=== PATIENT | female | born 1930 | race Caucasian/White ===

== ENCOUNTER 2022-06-03 02:28 | Emergency (ER) | payer MEDICARE ==
--- NOTE | 2022-06-03 02:48 | ED Physician Documentation ---
PD HPI Fall - Stated complaint Stated Complaint: Fall - Chief complaint Chief Complaint: Trauma Ch/Bk - History obtained from History obtained from: Patient, Family - History of Present Illness Mechanism of injury: Lost balance Fall distance: Standing position Where injury occurred: Home Timing - onset: Enter time (01:30) Injury(ies) location: Chest Pain level now: 5 Quality of pain: Pain Associated symptoms: No: LOC, AMS, Amnesia, Neck pain, Weakness, Paresthesias, Dyspnea, Nausea / vomiting, Hematemesis, Abdominal distension Symptoms improve with: Rest Worsens with: Movement Contributing factors: Anticoagulated. No: Intoxicated Similar symptoms before: Has not had sx before Recently seen: Not recently seen - Additional information Additional information: Patient was about to use the bathroom at approximately 1:30 this morning when she turned and lost her balance, causing her to fall to the ground. She denies head injury, denies ESCALANTE, denies neck pain. Her chief complaint is left low posterolateral chest pain that is distinctly worse with palpation and, to a lesser degree, with movement. Her medications include warfarin for atrial fibrillation Review of Systems Constitutional: reports: Reviewed and negative Eyes: reports: Reviewed and negative Ears: reports: Reviewed and negative Nose: reports: Reviewed and negative Throat: reports: Reviewed and negative Cardiac: reports: Chest pain / pressure (left low chest wall pain). denies: Palpitations, Pedal edema Respiratory: reports: Reviewed and negative GI: reports: Reviewed and negative : reports: Reviewed and negative Skin: reports: Reviewed and negative Musculoskeletal: reports: Reviewed and negative Neurologic: reports: Reviewed and negative PD PAST MEDICAL HISTORY - Past Medical History Past Medical History: Yes Cardiovascular: High cholesterol, Atrial fibrillation Endocrine/Autoimmune: HyPOthyroidism - Present Medications Home Medications: Ambulatory Orders Medication Instructions Recorded Confirmed Levothyroxine Sodium [Synthroid] 100 mcg PO DAILY 06/03/22 06/03/22 Simvastatin [Zocor] 20 mg PO DAILY 06/03/22 06/03/22 - Allergies Allergies/Adverse Reactions: Allergies Allergy/AdvReac Type Severity Reaction Status Date / Time No Known Drug Allergies Allergy Verified 06/03/22 03:14 - Living Situation Living Situation: reports: With family Living Arrangement: reports: At home PD ED PE NORMAL - Vitals Vital signs reviewed: Yes - General General: Alert and oriented X 3, Other (thin female in NAD when lying still but appears to have mild painful discomfort with movement such as sitting up for pulmonary auscultation or with deep inspiration) - HEENT HEENT: Atraumatic, PERRL, EOMI - Neck Neck: No bony TTP - Respiratory Respiratory: No respiratory distress, Clear bilaterally - Abdomen Abdomen: Soft, Non distended, Other (LUQ TTP without rebound or guarding) - Back Back: No spinal TTP - Derm Derm: Normal color, Warm and dry - Extremities Extremities: No deformity, No tenderness to palpate, Normal ROM s pain - Neuro Neuro: Alert and oriented X 3, 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, Normal speech Eye Opening: Spontaneous Motor: Obeys Commands Verbal: Oriented GCS Score: 15 PD ED PE EXPANDED - Cardiac Cardiac: Regular Rate, Irregularly irregular, Chest wall TTP (left posterolateral chest wall tenderness without crepitus; no echymosis) Results - Vitals Vitals: Vital Signs - 24 hr 06/03/22 06/03/22 06/03/22 02:35 04:40 06:00 Temperature 36.1 C L 36.3 C L Heart Rate 68 70 90 Respiratory 18 17 18 Rate Blood Pressure 147/84 H 136/76 H 140/82 H O2 Saturation 100 99 98 06/03/22 06/03/22 06/03/22 06:35 06:54 08:00 Temperature Heart Rate 74 103 H 107 H Respiratory 16 23 Rate Blood Pressure 122/73 142/87 H O2 Saturation 100 99 Oxygen O2 Source Room air - Labs Labs: Laboratory Tests 06/03/22 06/03/22 06/03/22 03:12 03:12 03:35 WBC 6.3 RBC 4.01 L Hgb 12.1 Hct 36.8 L MCV 91.8 MCH 30.2 MCHC 32.9 RDW 13.5 Plt Count 136 MPV 10.9 H Neut # (Auto) 4.1 Lymph # (Auto) 1.3 L Lewis # (Auto) 0.7 Eos # (Auto) 0.1 Baso # (Auto) 0.1 Absolute Nucleated RBC 0.00 Nucleated RBC % 0.0 PT 32.7 H INR 3.2 H Sodium 135 Potassium 4.5 Chloride 100 L Carbon Dioxide 27 Anion Gap 8.0 BUN 34 H Creatinine 1.0 Estimated GFR (MDRD) 52 L Glucose 119 H Calcium 9.3 Nasal Adenovirus (PCR) Nasal B. parapertussis DNA (PCR) Nasal Coronavir 229E PCR Nasal Coronavir HKU1 PCR Nasal Coronavir NL63 PCR Nasal Coronavir OC43 PCR Nasal Enterovir/Rhinovir PCR Nasal Influenza B PCR Nasal Influenza A PCR Nasal Parainfluen 1 PCR Nasal Parainfluen 2 PCR Nasal Parainfluen 3 PCR Nasal Parainfluen 4 PCR Nasal RSV (PCR) Nasal B.pertussis DNA PCR Nasal C.pneumoniae (PCR) Edouard Human Metapneumo PCR Nasal M.pneumoniae (PCR) Nasal SARS-CoV-2 (PCR) 06/03/22 07:55 WBC RBC Hgb Hct MCV MCH MCHC RDW Plt Count MPV Neut # (Auto) Lymph # (Auto) Lewis # (Auto) Eos # (Auto) Baso # (Auto) Absolute Nucleated RBC Nucleated RBC % PT INR Sodium Potassium Chloride Carbon Dioxide Anion Gap BUN Creatinine Estimated GFR (MDRD) Glucose Calcium Nasal Adenovirus (PCR) NOT DETECTED Nasal B. parapertussis DNA (PCR) NOT DETECTED Nasal Coronavir 229E PCR NOT DETECTED Nasal Coronavir HKU1 PCR NOT DETECTED Nasal Coronavir NL63 PCR NOT DETECTED Nasal Coronavir OC43 PCR NOT DETECTED Nasal Enterovir/Rhinovir PCR NOT DETECTED Nasal Influenza B PCR NOT DETECTED Nasal Influenza A PCR NOT DETECTED Nasal Parainfluen 1 PCR NOT DETECTED Nasal Parainfluen 2 PCR NOT DETECTED Nasal Parainfluen 3 PCR NOT DETECTED Nasal Parainfluen 4 PCR NOT DETECTED Nasal RSV (PCR) NOT DETECTED Nasal B.pertussis DNA PCR NOT DETECTED Nasal C.pneumoniae (PCR) NOT DETECTED Edouard Human Metapneumo PCR NOT DETECTED Nasal M.pneumoniae (PCR) NOT DETECTED Nasal SARS-CoV-2 (PCR) NOT DETECTED - Rads (name of study) CT chest with IV contrast Radiology: Prelim report reviewed, See rad report CT A/P with IV contrast Radiology: Prelim report reviewed, See rad report PD MEDICAL DECISION MAKING - ED course Complexity details: reviewed results, re-evaluated patient, considered differential, d/w patient, d/w family ED course: CT A/P shows AAST grade 2 laceration of the spleen, very small subcapsular hematoma and no evidence of active hemorrhage. CT chest shows multiple lower left rib fractures in varying stages of healing. At least one, the 10th, is acute appearing; minimal left pleural effusion versus hemorrhage. No pneumothorax. 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 Her vital signs were stable during ED stay with occasional tachycardia on monitor (SHELL) that would improve/resolve without specific intervention. She is given k-centra to reverse warfarin (INR 3.2). I discussed this case with [facility] [place] transfer center coordinator, and patient meets criteria on their algorithm for auto-accept. I did discuss the case with Dr. Corbett, ED physician at [facility] [place] [facility] who accepts transfer. Departure - Departure Disposition: 02 Transfer Acute Care Hosp Clinical Impression: Splenic laceration Qualifiers: Encounter type: initial encounter Qualified Code(s): S36.039A - Unspecified laceration of spleen, initial encounter Rib fractures Qualifiers: Encounter type: initial encounter Fracture type: closed Laterality: left Qualified Code(s): S22.42XA - Multiple fractures of ribs, left side, initial encounter for closed fracture Condition: Stable Discharge Date/Time: 06/03/22 08:41
[2022-06-03 03:21] LABS: BASOPHILS # (AUTO) 0.1 10^3/uL (0.0-0.1); BASOPHILS % (AUTO) 0.8 %; EOSINOPHILS # (AUTO) 0.1 10^3/uL (0.0-0.7); EOSINOPHILS % (AUTO) 1.9 %; HCT - HEMATOCRIT 36.8 % (37.0-47.0); HGB - HEMOGLOBIN 12.1 g/dL (12.0-16.0); LYMPHOCYTES # (AUTO) 1.3 10^3/uL (1.5-3.5); LYMPHOCYTES % (AUTO) 20.6 %; MEAN CORPUSCULAR HEMOGLOBIN 30.2 pg (27.0-31.0); MEAN CORPUSCULAR HGB CONC 32.9 g/dL (32.0-36.0); MEAN CORPUSCULAR VOLUME 91.8 fL (81.0-99.0); MEAN PLATELET VOLUME 10.9 fL (7.9-10.8); MONOCYTES # (AUTO) 0.7 10^3/uL (0.0-1.0); MONOCYTES % (AUTO) 11.7 %; NEUTROPHILS # (AUTO) 4.1 10^3/uL (1.5-6.6); NEUTROPHILS % (AUTO) 64.7 %; PLT - PLATELET COUNT 136 10^3/uL (130-450); RED BLOOD COUNT 4.01 10^6/uL (4.20-5.40); RED CELL DISTRIBUTION WIDTH 13.5 % (12.0-15.0); WHITE BLOOD COUNT 6.3 x10^3/uL (4.8-10.8)
[2022-06-03 03:47] LABS: CALCIUM 9.3 mg/dL (8.5-10.3); POTASSIUM 4.5 mmol/L (3.5-5.0)
[2022-06-03 04:04] LABS: INR 3.2 (0.8-1.2); PT - PROTHROMBIN TIME 32.7 secs (9.9-12.6)
[2022-06-03] MEDS ORDERED: PROTHROMBIN COMPLEX CONC 500 UNIT VIAL IVP STA (07:42)
[2022-06-03 08:01] VITALS: BP 142/87
--- NOTE | 2022-06-03 08:28 | CT Report ---
PROCEDURE: CHEST W INDICATIONS: Left lower chest pain status post fall CONTRAST: 100 mL Optiray 320 mL TECHNIQUE: After the administration of intravenous contrast, 1 mm axial images were acquired from the pulmonary apices through the posterior costophrenic angles. Axial 5 mm soft tissue kernel reconstructions were performed as well as 8 mm axial MIP and coronal and sagittal 5 mm reformations. For radiation dose reduction, the following was used: automated exposure control, adjustment of mA and/or kV according to patient size. COMPARISON: None. FINDINGS: Acute minimally displaced left 10th rib fracture. Additional left 10th and 11th rib fractures show ev idence of healing and are likely subacute or remote. Small left pleural effusion no pneumothorax. No pulmonary contusion or pneumatocele. Minimal bibasilar dependent atelectasis. No acute mediastinal ab normality. Normal thoracic vertebral body height. IMPRESSION: Multiple left lower rib fractures, with an acute appearing left posterior 10th rib fracture and subac corinne or remote left 10th and 11th rib fractures also noted. Small left pleural effusion presumably rel ated to the acute left 10th rib fracture. Reviewed by: Ozzie Faria MD on 06/03/2022 8:27 AM PDT Approved by: Ozzie Faria MD on 06/03/2022 8:27 AM PDT Station ID: [id number]
--- NOTE | 2022-06-03 08:32 | CT Report ---
PROCEDURE: Abdomen/Pelvis W INDICATIONS: LUQ pain, tenderness after fall, on warfarin CONTRAST: IV CONTRAST: Optiray 320 ml: 100 PO CONTRAST: *NO PO CONTRAST TECHNIQUE: After the administration of intravenous contrast, 5 mm thick sections acquired from the diaphragms to the symphysis. 5 mm thick coronal and sagittal reformats were acquired. For radiation dose reducti on, the following was used: automated exposure control, adjustment of mA and/or kV according to linden ent size. COMPARISON: None. FINDINGS: Possible splenic laceration along the anterior margin of the spleen with a hypoattenuating linear foc us measuring 1.3 cm. Perisplenic subcapsular hematoma along the spleen. Findings active extravasation . Calcified splenic artery aneurysm noted incidentally. Hepatic steatosis with otherwise normal appea teresa of the liver. Left renal cyst. Kidneys otherwise normal. Gallstones or hyperdense sludge presen t layering dependently. Pancreas unremarkable. No adrenal gland hemorrhage or mass. No pneumoperitone um. No acute enteric abnormality. Pelvic viscera are within normal limits. Rib fractures described on CT chest report. No other fracture in the abdomen or pelvis identified. IMPRESSION: AAST grade 2 splenic laceration with a very small subcapsular hematoma. Left lower rib fractures described on separate CT chest report. No significant change from preliminary report. Reviewed by: Ozzie Faria MD on 06/03/2022 8:31 AM PDT Approved by: Ozzie Faria MD on 06/03/2022 8:31 AM PDT Station ID: [id number]
[2022-06-03 08:56] LABS: B. PARAPERTUSSIS- RESP PCR PAN NOT DETECTED; B. PERTUSSIS- RESP PCR PANEL NOT DETECTED; C. PNEUMONIAE- RESP PCR PANEL NOT DETECTED; CORONAVIRUS 229E-RESP PCR NOT DETECTED; CORONAVIRUS HKU1-RESP PCR NOT DETECTED; CORONAVIRUS NL63-RESP PCR NOT DETECTED; CORONAVIRUS OC43-RESP PCR NOT DETECTED; HUMAN METAPNEUMOVIRUS NOT DETECTED; INFLUENZA A- RESP PCR PANEL NOT DETECTED; M. PNEUMONIAE- RESP PCR PANEL NOT DETECTED; PARAINFLUENZA VIRUS 3 NOT DETECTED; PARAINFLUENZA VIRUS 4 NOT DETECTED; RHINOVIRUS/ENTEROVIRUS NOT DETECTED; RSV- RESP PCR PANEL NOT DETECTED; SARS-CoV-2 -RESP PCR PANEL NOT DETECTED
[2022-06-03 08:57] LABS: INFLUENZA B - RESP PCR PANEL NOT DETECTED; PARAINFLUENZA VIRUS 1 NOT DETECTED; PARAINFLUENZA VIRUS 2 NOT DETECTED
== END 2022-06-03 08:41 | disposition short-term general hospital (02) ==
LOC: ED 02:28
DX: S36.039A Unspecified laceration of spleen, initial encounter (principal); W18.30XA Fall on same level, unspecified, initial encounter; I48.91 Unspecified atrial fibrillation; Z79.01 Long term (current) use of anticoagulants; Z20.822 Contact with and (suspected) exposure to COVID-19
CPT/HCPCS: 36415; 71260; 74177; 80048; 85025; 85610; 87633; 99284; 99285; J7168; Q9967